=== PATIENT | male | born 1960 | race Caucasian/White ===

== ENCOUNTER 2018-04-18 09:23 | Emergency (ER) | payer OTHER ==
[~2018-04-18] VITALS: Ht 180.3 cm; Wt 49.6 kg
[~2018-04-18 09:23] MED LIST: ALENDRONATE SOD70 MG PO; BENADRYL ITCH28.3 GM TP; CALCIUM 600 +1 EAC1 PO; CERTAVITE SR W1 EACH PO; COLACE100 MG PO; DEPAKOTE250 MG PO; DEPAKOTE500 MG PO; DULCOLAX10 MG PR; ENEMA133 M2 PR; MILK OF MAGN PO; MIRALAX17 GM PO; RISAMINE OINTM113 GM TP; SEA-OMEGA 30 C1 EACH PO; SIMVASTATIN40 MG PO; TRAZODONE HCL50 MG PO; TYLENOL REGULA325 MG PO
[2018-04-18 10:05] LABS: BASOPHIL (%) 0.7 % (0-1); EOSINOPHIL (%) 1.6 % (0-5); EOSINOPHIL COUNT 0.1 K/uL (0-0.3); HEMATOCRIT 45.5 % (38.0-50.0); HEMOGLOBIN 15.1 G/DL (12.5-16.6); IMMATURE GRANULOCYTE (%) 0.2 % (0.0-0.7); LYMPHOCYTE COUNT 1.9 K/uL (1.0-2.8); MCH 26.8 PG (29.0-34.0); MCHC 33.2 G/DL (30.0-36.0); MCV 80.7 FL (86-99); MONOCYTE (%) 8.1 % (3-12); MONOCYTE COUNT 0.4 K/uL (0-0.8); NEUTROPHIL (%) 46.4 % (45-76); NEUTROPHIL COUNT 2.1 K/uL (1.8-6.4); PLATELET COUNT 188 K/uL (156-360); RBC DIS.WIDTH-CV 15.1 % (11.8-14.6); RBC DIS.WIDTH-SD 44.3 % (39-53); RED BLOOD COUNT 5.64 M/uL (4.00-5.50); WHITE BLOOD COUNT 4.5 K/uL (4.1-10.2)
[2018-04-18 10:13] LABS: ALBUMIN 4.2 g/dL (3.2-4.8); CHLORIDE 106 mEq/L (99-109); POTASSIUM 4.3 mEq/L (3.7-5.4); SODIUM 140 mEq/L (136-147)
[2018-04-18 10:15] LABS: GLUCOSE 88 mg/dL (70-99); TOTAL PROTEIN 7.3 g/dL (6.4-8.3)
[2018-04-18 10:17] LABS: TOTAL BILIRUBIN 0.3 mg/dL (0.0-1.0)
[2018-04-18 10:18] LABS: ALKALINE PHOSPHATASE 42 IU/L (3-129)
[2018-04-18 10:19] LABS: CREATININE 0.6 mg/dL (0.6-1.3); GFR ESTIMATE (CALCULATED) > 59 mL/min/ (58.99-99999)
[2018-04-18 10:20] LABS: AST (GOT) 20 IU/L (2-34); UREA NITROGEN (BUN) 21 mg/dL (9-23)
[2018-04-18 10:22] LABS: ALT (GPT) 16 IU/L (3-49)
[2018-04-18 10:39] LABS: APPEARANCE SL.HAZY ((CLEAR)); BILIRUBIN NEGATIVE; BLOOD NEGATIVE; COLOR AMBER ((YELLOW)); GLUCOSE (STRIP) NEGATIVE; KETONES 5; LEUKOCYTES NEGATIVE; NITRITE NEGATIVE; PROTEIN (STRIP) NEGATIVE; SPECIFIC GRAVITY 1.027 (1.000-1.030); UROBILINOGEN 0.2 MG/DL (0.2-1.0)
[2018-04-18 10:45] LABS: BACTERIA NONE SEEN /HPF; EPITHELIAL CELLS NONE SEEN /HPF; MUCUS TRACE /LPF; RED BLOOD CELLS NONE SEEN /HPF (0-5); UCUL ADDED? NO; WHITE BLOOD CELLS 0-5 /HPF (0-5)
[2018-04-18 10:53] LABS: VALPROIC ACID (DEPAKOTE) 85.2 MCG/ML (50-100)
[2018-04-18 16:08] VITALS: BP 106/60
== END 2018-04-18 16:11 | disposition home or self-care (01) ==
LOC: EME 09:23
PROVIDERS: Emergency Medicine
DX: G40.909 Epilepsy, unspecified, not intractable, without status epilepticus (principal); M81.0 Age-related osteoporosis without current pathological fracture; G82.50 Quadriplegia, unspecified; G80.9 Cerebral palsy, unspecified; F79 Unspecified intellectual disabilities
CPT/HCPCS: 70450; 71045; 80053; 80164; 81003; 85025; 99281; 99285